=== PATIENT | female | born 1940 | race Caucasian/White ===

== ENCOUNTER 2024-11-10 15:27 | Inpatient (IN) | payer MEDICARE ==
[~2024-11-10] VITALS: Ht 167.6 cm; Wt 67.0 kg
[~2024-11-10 15:27] MED LIST: ASPI-1444 PO; CEPH-558 PO; CYAN100099 PO; MELA5TAB40 PO; METO25 PO; OMEG-135 PO; SERT-158 PO; SIMV10TA97 PO
[2024-11-10] MEDS: ACETAMINOPHEN 325 MG TABLET PO ONE (16:09)
[2024-11-10 16:15] LABS: EOSINOPHILS % (AUTO) 3.7 % (1.0-6.0); HEMATOCRIT 34.3 % (36-46); HEMOGLOBIN 11.2 g/dL (12.0-16.0); LYMPHOCYTES # (AUTO) 1.5 K/uL (1.0-4.8); LYMPHOCYTES % (AUTO) 10.2 % (22.0-44.0); MEAN CORPUSCULAR HGB CONC 32.5 G/dL (31.0-37.0); MEAN CORPUSCULAR VOLUME 92 fL (80-100); MONOCYTES # (AUTO) 0.7 K/uL (0.1-1.0); MONOCYTES % (AUTO) 4.4 % (2.0-9.0); NEUTROPHILS # (AUTO) 12.1 K/uL (1.8-7.7); NEUTROPHILS % (AUTO) 80.7 % (40.0-70.0); PLATELET COUNT (AUTO) 335 K/uL (150-450); RED BLOOD CELL COUNT(AUTO) 3.72 MIL/uL (4.00-5.20); RED CELL DISTRIBUTION WIDTH 14.2 % (11.5-14.5)
[2024-11-10 16:23] LABS: ANION GAP 10 mmol/L (8-16); CALCIUM, TOTAL 9.3 mg/dL (8.8-10.5); CARBON DIOXIDE 23 mmol/L (22-29); CHLORIDE 102 mmol/L (98-107); GLOMERULAR FILTR. RATE CALC 33 mL/min (>60); GLUCOSE,RANDOM 295 mg/dL (70-110); POTASSIUM 4.4 mmol/L (3.5-5.1); SODIUM SERUM 135 mmol/L (136-145); UREA NITROGEN, BLOOD 52 mg/dL (7-18)
[2024-11-10 16:25] LABS: ALANINE AMINOTRANSFERASE 23 U/L (12-78); ALBUMIN 2.9 g/dL (3.4-5.0); ALKALINE PHOSPHATASE 143 U/L (46-116); ASPARTATE AMINOTRANSFERASE 20 U/L (15-37); BILIRUBIN,TOTAL 0.3 mg/dL (0.1-1.0); TOTAL PROTEIN, SERUM 7.3 g/dL (6.4-8.2)
[2024-11-10 16:35] LABS: CREATINE KINASE, TOTAL ONLY 24 U/L (26-192)
[2024-11-10 16:38] LABS: TROPONIN I-HIGH SENSITIVITY 56 ng/L (<51)
[2024-11-10 16:53] LABS: B-TYPE NATRIURETIC PEPTIDE 20 pg/mL (0-100)
[2024-11-10 16:55] LABS: BILIRUBIN,DIRECT < 0.05 mg/dL (0.00-0.20)
[2024-11-10 18:06] LABS: APPEARANCE,URINE CLEAR (CLEAR); BILIRUBIN,URINE NEGATIVE (NEGATIVE); COLOR,URINE COLORLESS (YELLOW); GLUCOSE, URINE (UA) NEGATIVE (NEGATIVE); KETONES,URINE NEGATIVE (NEGATIVE); LEUKOCYTE ESTERASE ,URINE NEGATIVE (NEGATIVE); NITRATE,URINE NEGATIVE (NEGATIVE); OCCULT BLOOD,URINE NEGATIVE (NEGATIVE); PH,URINE 6.5 (5.0-8.0); PROTEIN,URINE NEGATIVE (NEGATIVE); SPECIFIC GRAVITIY, URINE 1.004 (1.003-1.030); UROBILINOGEN,URINE <=1.0 mg/dL (<=1.0)
[2024-11-10] MEDS ORDERED: ACETAMINOPHEN 325 MG TABLET PO PRN (20:45)
[2024-11-10] MEDS ORDERED: MORPHINE SULFATE 2 MG/ML SYRINGE IVP PRN (20:45)
[2024-11-10] MEDS ORDERED: MAGNESIUM HYDROXIDE SUSPENSION 30 ML UDCUP PO PRN (20:45)
[2024-11-10] MEDS ORDERED: ONDANSETRON HCL 4 MG/2 ML VIAL IVP PRN (20:45)
[2024-11-10] MEDS ORDERED: BISACODYL 10 MG RECTAL RECTAL SUPPOSITORY PR PRN (20:45)
[2024-11-10] MEDS: METOPROLOL TARTRATE 25 MG TABLET PO SCH (21:00)
[2024-11-10] MEDS: DOCUSATE SODIUM 100 MG CAPSULE PO SCH (21:00)
[2024-11-10] MEDS: SODIUM CHLORIDE 0.9% 1,000 ML IV ONE (21:33)
[2024-11-10 23:30] VITALS: BP 144/79; PULSE 83; RESP 19; TEMP 97.7; O2SAT 96
[2024-11-10 23:33] LABS: TROPONIN I-HIGH SENSITIVITY 109 ng/L (<51)
[2024-11-10] MEDS: HEPARIN SODIUM,PORCINE 5,000 UNITS/ML VIAL SQ SCH (23:35)
[2024-11-11] VITALS (7 sets, daily range): BP systolic 107–155; BP diastolic 56–74; PULSE 74–96; RESP 17–18; TEMP 97.5–98.7; O2SAT 94–96
[2024-11-11 07:57] LABS: BASOPHILS % (AUTO) 0.5 % (0.0-2.0); EOSINOPHILS % (AUTO) 4.7 % (1.0-6.0); HEMATOCRIT 34.3 % (36-46); HEMOGLOBIN 11.1 g/dL (12.0-16.0); LYMPHOCYTES # (AUTO) 1.5 K/uL (1.0-4.8); LYMPHOCYTES % (AUTO) 12.3 % (22.0-44.0); MEAN CORPUSCULAR HEMOGLOBIN 29.6 pg (26.0-34.0); MEAN CORPUSCULAR HGB CONC 32.5 G/dL (31.0-37.0); MEAN CORPUSCULAR VOLUME 91 fL (80-100); MONOCYTES # (AUTO) 0.6 K/uL (0.1-1.0); MONOCYTES % (AUTO) 4.9 % (2.0-9.0); NEUTROPHILS # (AUTO) 9.3 K/uL (1.8-7.7); NEUTROPHILS % (AUTO) 77.6 % (40.0-70.0); PLATELET COUNT (AUTO) 295 K/uL (150-450); RED BLOOD CELL COUNT(AUTO) 3.76 MIL/uL (4.00-5.20); RED CELL DISTRIBUTION WIDTH 14.2 % (11.5-14.5)
[2024-11-11 08:09] LABS: CALCIUM, TOTAL 9.2 mg/dL (8.8-10.5); CREATININE 1.2 mg/dL (0.60-1.30); POTASSIUM 4.3 mmol/L (3.5-5.1)
[2024-11-11 08:25] LABS: TROPONIN I-HIGH SENSITIVITY 99 ng/L (<51)
[2024-11-11] MEDS: ASPIRIN 81 MG DR TABLET PO SCH (08:54)
[2024-11-11] MEDS: PANTOPRAZOLE SODIUM 40 MG DR TABLET PO SCH (08:55)
[2024-11-11] MEDS: SIMVASTATIN 10 MG TABLET PO SCH (08:55)
[2024-11-11] MEDS: SERTRALINE HCL 50 MG TABLET PO SCH (08:55)
[2024-11-11 17:13] LABS: PH,URINE DRUG SCREEN 5.5 (5.0-8.0)
[2024-11-11 17:20] LABS: ALCOHOL, URINE DRUG SCREEN NEGATIVE (NEGATIVE); AMPHET/METH SCREEN,URINE NEGATIVE (NEGATIVE); BARBITURATE SCREEN, URINE NEGATIVE (NEGATIVE); BENZODIAZEPINES SCREEN,URINE NEGATIVE (NEGATIVE); CANNABINOID SCREEN,URINE NEGATIVE (NEGATIVE); COCAINE SCREEN,URINE NEGATIVE (NEGATIVE); METHADONE SCREEN, URINE NEGATIVE (NEGATIVE); OPIATE SCREEN,URINE NEGATIVE (NEGATIVE); PHENCYCLIDINE SCREEN,URINE NEGATIVE (NEGATIVE)
[2024-11-12 05:18] VITALS: BP 137/96; PULSE 83; RESP 18; TEMP 97.5; O2SAT 96
[2024-11-12 07:25] LABS: BASOPHILS % (AUTO) 0.6 % (0.0-2.0); EOSINOPHILS % (AUTO) 4.1 % (1.0-6.0); HEMATOCRIT 33.9 % (36-46); HEMOGLOBIN 10.9 g/dL (12.0-16.0); LYMPHOCYTES # (AUTO) 1.4 K/uL (1.0-4.8); LYMPHOCYTES % (AUTO) 12.4 % (22.0-44.0); MEAN CORPUSCULAR VOLUME 91 fL (80-100); MONOCYTES # (AUTO) 0.5 K/uL (0.1-1.0); MONOCYTES % (AUTO) 4.1 % (2.0-9.0); NEUTROPHILS # (AUTO) 8.7 K/uL (1.8-7.7); NEUTROPHILS % (AUTO) 78.8 % (40.0-70.0); PLATELET COUNT (AUTO) 307 K/uL (150-450); RED BLOOD CELL COUNT(AUTO) 3.75 MIL/uL (4.00-5.20); WHITE BLOOD COUNT (AUTO) 11.1 K/uL (4.5-11.0)
[2024-11-12 07:34] LABS: CALCIUM, TOTAL 9.6 mg/dL (8.8-10.5); CREATININE 1.28 mg/dL (0.60-1.30); POTASSIUM 4.5 mmol/L (3.5-5.1)
[2024-11-12 08:31] VITALS: BP 138/86; PULSE 84; RESP 19; TEMP 98.2; O2SAT 98
[2024-11-12 11:46] VITALS: BP 149/89; PULSE 75; RESP 18; TEMP 98; O2SAT 96
[2024-11-12 14:56] VITALS: BP_SYST 126; BP_SYST 140; BP_DIAS 78; BP_DIAS 83; PULSE 81; PULSE 89; RESP 18; TEMP 98.4; O2SAT 95; O2SAT 97
[2024-11-12 20:00] VITALS: BP 115/66; PULSE 82; RESP 17; TEMP 97.9; O2SAT 95
[2024-11-12] MEDS: HYDROCODONE/ACETAMINOPHEN 5-325 MG TABLET PO PRN (21:24)
[2024-11-12] MEDS: ZOLPIDEM TARTRATE 5 MG TABLET PO PRN (21:24)
[2024-11-13] VITALS: BP 128/71; PULSE 75; RESP 18; TEMP 97.7; O2SAT 98
[2024-11-13 04:00] VITALS: BP 133/73; PULSE 62; RESP 17; TEMP 97.9; O2SAT 97
[2024-11-13 07:43] LABS: CALCIUM, TOTAL 9.6 mg/dL (8.8-10.5); CREATININE 1.28 mg/dL (0.60-1.30); POTASSIUM 4.5 mmol/L (3.5-5.1)
[2024-11-13 07:46] LABS: BASOPHILS % (AUTO) 0.7 % (0.0-2.0); HEMATOCRIT 32.6 % (36-46); HEMOGLOBIN 10.6 g/dL (12.0-16.0); LYMPHOCYTES # (AUTO) 2.1 K/uL (1.0-4.8); LYMPHOCYTES % (AUTO) 26.2 % (22.0-44.0); MEAN CORPUSCULAR HEMOGLOBIN 29.6 pg (26.0-34.0); MEAN CORPUSCULAR HGB CONC 32.5 G/dL (31.0-37.0); MEAN CORPUSCULAR VOLUME 91 fL (80-100); MONOCYTES # (AUTO) 0.6 K/uL (0.1-1.0); MONOCYTES % (AUTO) 6.8 % (2.0-9.0); NEUTROPHILS # (AUTO) 4.9 K/uL (1.8-7.7); NEUTROPHILS % (AUTO) 60.3 % (40.0-70.0); PLATELET COUNT (AUTO) 309 K/uL (150-450); RED BLOOD CELL COUNT(AUTO) 3.58 MIL/uL (4.00-5.20); WHITE BLOOD COUNT (AUTO) 8.1 K/uL (4.5-11.0)
[2024-11-13 08:00] VITALS: BP 128/73; PULSE 62; RESP 18; TEMP 98.1; O2SAT 97
[2024-11-13 12:00] VITALS: BP 143/77; PULSE 62; RESP 17; TEMP 98.4; O2SAT 95
[2024-11-13] MEDS ORDERED: ACET160L48 PO (14:30)
[2024-11-13] MEDS ORDERED: ACET-66 PO (14:31)
[2024-11-13 18:05] VITALS: BP 131/66; PULSE 68; RESP 17; TEMP 97.5; O2SAT 96
[2024-11-13 21:00] VITALS: BP 141/77; PULSE 70; RESP 18; TEMP 97.5; O2SAT 98
[2024-11-14 04:48] VITALS: BP 140/63; PULSE 66; RESP 18; TEMP 98.1; O2SAT 96
== END 2024-11-14 15:40 | DRG 73 ==
LOC: EMS 15:27 → EDH 20:32 → 5S 23:00 → 4E 11-13 20:51
PROVIDERS: ADMIT Internal Medicine; ATTEND Internal Medicine
DX: G90.89 Other disorders of autonomic nervous system (principal); N17.0 Acute kidney failure with tubular necrosis; E44.0 Moderate protein-calorie malnutrition; N17.9 Acute kidney failure, unspecified; R55 Syncope and collapse; M25.512 Pain in left shoulder; D64.9 Anemia, unspecified; E11.9 Type 2 diabetes mellitus without complications; I10 Essential (primary) hypertension; F03.90 Unspecified dementia, unspecified severity, without behavioral disturbance, psychotic disturbance, mood disturbance, and anxiety; R79.89 Other specified abnormal findings of blood chemistry; E78.00 Pure hypercholesterolemia, unspecified; I34.0 Nonrheumatic mitral (valve) insufficiency; F32.A Depression, unspecified; F41.9 Anxiety disorder, unspecified; K21.9 Gastro-esophageal reflux disease without esophagitis; Z68.23 Body mass index [BMI] 23.0-23.9, adult
CPT/HCPCS: 70450; 71045; 72125; 80048; 80076; 80307; 81003; 82550; 83880; 84484; 85025; 87081; 93005; 93306; 96360; 99285; G0378; J1644; J7030; 36415-L1; 36415-TC

== ENCOUNTER 2024-12-31 12:18 | Emergency (ER) | payer MEDICARE ==
[~2024-12-31] VITALS: Ht 154.9 cm; Wt 70.0 kg
[~2024-12-31 12:18] MED LIST changes: +ACET160L48 PO; -CYAN100099 PO; +[UNRECOGNIZED DRUG - CODE] PO
[2024-12-31 12:20] VITALS: TEMP 98
[2024-12-31 13:45] VITALS: BP 159/84; PULSE 76; RESP 18; O2SAT 96
== END 2024-12-31 15:57 | disposition home or self-care (01) ==
LOC: EMS 12:19
DX: S00.83XA Contusion of other part of head, initial encounter (principal); E11.9 Type 2 diabetes mellitus without complications; E78.00 Pure hypercholesterolemia, unspecified; F03.94 Unspecified dementia, unspecified severity, with anxiety; F32.A Depression, unspecified; K21.9 Gastro-esophageal reflux disease without esophagitis; I10 Essential (primary) hypertension; Z79.82 Long term (current) use of aspirin; Z79.899 Other long term (current) drug therapy; Y08.89XA Assault by other specified means, initial encounter; Y93.89 Activity, other specified; Y92.89 Other specified places as the place of occurrence of the external cause; Y99.8 Other external cause status
CPT/HCPCS: 70450; 70486; 72125; 99284

== ENCOUNTER 2025-04-25 16:17 | Inpatient (IN) | payer MEDICARE ==
[~2025-04-25] VITALS: Ht 167.6 cm; Wt 69.3 kg
[~2025-04-25 16:17] MED LIST changes: +0.9% SODIUM CHLORIDE 10 ML SYRINGE IVP ONE; +0.9% SODIUM CHLORIDE 250 ML BAG IV ONE; +ATROPINE SULFATE 0.1 MG/ML 10 ML SYRINGE IVP ONE; +CALCIUM GLUCONATE 100 MG/ML 10 ML IVP ONE; +EPINEPHrine 1:10,000 [1 MG/10 ML] SYRINGE ONE; +NALOXONE HCL 1 MG/ML 2 ML SYRINGE ONE; +SODIUM BICARBONATE [ADULT] 8.4% 50 MEQ/50 ML SYRINGE IVP ONE
[2025-04-25] MEDS ORDERED: ACET-2247 PO (16:40)
[2025-04-25 16:55] LABS: PLATELET COUNT (AUTO) 304 K/uL (150-450); RED BLOOD CELL COUNT(AUTO) 3.44 MIL/uL (4.00-5.20); RED CELL DISTRIBUTION WIDTH 16.7 % (11.5-14.5); WHITE BLOOD COUNT (AUTO) 24.5 K/uL (4.5-11.0)
[2025-04-25 17:00] VITALS: PULSE 62; RESP 16; O2SAT 97
[2025-04-25] MEDS: CefTRIAXone 1 GM/DEXTROSE 50 ML IV ONE (17:00)
[2025-04-25 17:09] LABS: ASPARTATE AMINOTRANSFERASE 75 U/L (15-37); TOTAL PROTEIN, SERUM 6.3 g/dL (6.4-8.2)
[2025-04-25] MEDS ORDERED: 0.9% SODIUM CHLORIDE 10 ML SYRINGE IVP ONE (17:12)
[2025-04-25] MEDS ORDERED: IOHEXOL 350 MG/ML 100 ML VIAL ONE (17:12)
[2025-04-25] MEDS ORDERED: SODIUM CHLORIDE 0.9% 100 ML ONE (17:12)
[2025-04-25 17:14] LABS: BAND NEUTROPHILS % (MANUAL) 8 % (0-5); BASOPHILS % (MANUAL) 1 % (0-2); LYMPHOCYTES % (MANUAL) 15 % (22-44); MONOCYTES % (MANUAL) 4 % (2-9); SEGMENTED NEUTROPHILS % 72 % (40-70); WBC MORPHOLOGY TOXIC VACUOLATION
[2025-04-25 17:15] LABS: PLATELET MORPHOLOGY COMMENT LARGE PLTS PRESENT; RBC MORPHOLOGY COMMENT ABNORMAL RBC MORPH
[2025-04-25 17:16] LABS: TROPONIN I-HIGH SENSITIVITY 216 ng/L (<51)
[2025-04-25 17:28] LABS: LACTIC ACID 21.4 mmol/L (0.4-2.0)
[2025-04-25 17:30] LABS: FRACTIONATED INSPIRED OXYGEN 100.0 % (21-100.0); SOURCE, BLOOD GAS ARTERIAL; TEMPERATURE, FAHRENHEIT, BG 98.6 FAHREN (96.0-98.6)
[2025-04-25 17:30] LABS: CALCIUM, TOTAL 9.5 mg/dL (8.8-10.5); CREATININE 6.12 mg/dL (0.60-1.30); GLOMERULAR FILTR. RATE CALC 7 mL/min (>60); GLUCOSE,RANDOM 308 mg/dL (70-110); SODIUM SERUM 136 mmol/L (136-145); UREA NITROGEN, BLOOD 67 mg/dL (7-18)
[2025-04-25 17:34] LABS: ABG BASE EXCESS -34.5 mmol/L (-2.0-3.0); ABG CARBOXYHEMOGLOBIN 0.3 % (0.5-1.5); ABG HCO3 2.0 mmol/L (21.0-28.0); ABG METHEMOGLOBIN 1.1 % (0.0-1.5); ABG OXYGEN CONTENT 14.2 mL/dL (15.0-23.0); ABG OXYGEN SATURATION 97.8 % (94.0-98.0); ABG OXYHEMOGLOBIN 96.4 % (94.0-98.0); ABG PCO2 28 mmHg (32.0-45.0); ABG TOTAL HEMOGLOBIN 10.3 G/dL (12.0-16.0); PO2, ARTERIAL BG 133.2 mmHg (83.0-108.0)
[2025-04-25 17:40] LABS: ASPARTATE AMINOTRANSFERASE 79 U/L (15-37); CHOL/HDL RATIO 4.7 (3.9-5.7); LDL CHOL (CALC.) 130 mg/dL (0-130); TOTAL PROTEIN, SERUM 6.3 g/dL (6.4-8.2)
[2025-04-25] MEDS: DEXTROSE 50%-WATER 25 GM/50 ML SYRINGE IVP ONE ×2 (17:44→18:51)
[2025-04-25] MEDS: SODIUM CHLORIDE 0.9% 1,800 ML IV ONE (17:44)
[2025-04-25] MEDS: ALBUTEROL SULFATE 2.5 MG/0.5 ML NEB SOLUTION NEB ONE (17:51)
[2025-04-25 17:55] VITALS: PULSE 81; RESP 16; O2SAT 100
[2025-04-25 17:55] LABS: ABG PH 6.629 (7.350-7.450); ALLEN TEST, BLOOD GAS POS; O2 DEVICE,BLOOD GAS VENTILATOR (ROOM AIR); SITE, BLOOD GAS LFT BRACHIAL
[2025-04-25 17:56] LABS: PEEP,BG 5 cm H2O; VT, ABG 430 ml
[2025-04-25 17:57] LABS: SET RATE, BG 16.0 min.
[2025-04-25] MEDS: CALCIUM GLUCONATE 100 MG/ML 10 ML IVP ONE (18:22)
[2025-04-25] MEDS ORDERED: ACETAMINOPHEN 325 MG TABLET PO PRN (18:30)
[2025-04-25] MEDS ORDERED: BISACODYL 10 MG RECTAL RECTAL SUPPOSITORY PR PRN (18:30)
[2025-04-25] MEDS ORDERED: ONDANSETRON HCL 4 MG/2 ML VIAL IVP PRN (18:30)
[2025-04-25] MEDS ORDERED: PHENYLEPHRINE HCL IN 0.9% NACL 400 MCG/10 ML SYRINGE IVP ONE (18:42)
[2025-04-25] MEDS ORDERED: DEXTROSE 50%-WATER 25 GM/50 ML SYRINGE IVP PRN (18:45)
[2025-04-25] MEDS: NOREPINEPHRINE 8 MG/0.9 % NACL 250 ML IV PRN (18:48)
[2025-04-25] MEDS: INSULIN REGULAR, HUMAN 100 UNITS/ML IVP ONE (18:52)
[2025-04-25] MEDS: SODIUM ZIRCONIUM CYCLOSILICATE 10 GM POWDER PACKET NG ONE (18:55)
[2025-04-25 19:00] VITALS: PULSE 76; RESP 16; O2SAT 100
[2025-04-25] MEDS: SODIUM BICARBONATE [ADULT] 8.4% 50 MEQ/50 ML SYRINGE IVP ONE (19:14)
[2025-04-25 19:29] LABS: ABG BASE EXCESS -35.7 mmol/L (-2.0-3.0); ABG CARBOXYHEMOGLOBIN 0.3 % (0.5-1.5); ABG HCO3 1.3 mmol/L (21.0-28.0); ABG METHEMOGLOBIN 1.3 % (0.0-1.5); ABG OXYGEN CONTENT 14.4 mL/dL (15.0-23.0); ABG OXYGEN SATURATION 99.9 % (94.0-98.0); ABG OXYHEMOGLOBIN 98.3 % (94.0-98.0); ABG PCO2 23 mmHg (32.0-45.0); ABG TOTAL HEMOGLOBIN 9.7 G/dL (12.0-16.0); FRACTIONATED INSPIRED OXYGEN 100.0 % (21-100.0); SOURCE, BLOOD GAS ARTERIAL; TEMPERATURE, FAHRENHEIT, BG 88.9 FAHREN (96.0-98.6)
[2025-04-25 19:31] LABS: ABG PH 6.621 (7.350-7.450); ALLEN TEST, BLOOD GAS Positive; PO2, ARTERIAL BG 337.4 mmHg (83.0-108.0); SITE, BLOOD GAS LFT RADIAL
[2025-04-25 19:32] LABS: ABG A-A DIFF O2 365.3 mmHg (10-20.0); O2 DEVICE,BLOOD GAS VENTILATOR (ROOM AIR); PATIENT RATE, BG 16.0 min.; PEEP,BG 5 cm H2O; SET RATE, BG 16.0 min.; SPONTANEOUS VT, BG 854 ml; VT, ABG 430 ml
[2025-04-25 19:47] LABS: CALCIUM, TOTAL 8.8 mg/dL (8.8-10.5); CREATININE 5.2 mg/dL (0.60-1.30); GLOMERULAR FILTR. RATE CALC 8.0 mL/min (>60); GLUCOSE,RANDOM 230.0 mg/dL (70-110); SODIUM SERUM 145.0 mmol/L (136-145); UREA NITROGEN, BLOOD 62.0 mg/dL (7-18)
[2025-04-25 20:17] LABS: APPEARANCE,URINE CLEAR (CLEAR); GLUCOSE, URINE (UA) TRACE mg/dL (NEGATIVE); LEUKOCYTE ESTERASE ,URINE NEGATIVE (NEGATIVE); NITRATE,URINE NEGATIVE (NEGATIVE); OCCULT BLOOD,URINE TRACE (NEGATIVE); PH,URINE DRUG SCREEN 5.0 (5.0-8.0); SPECIFIC GRAVITIY, URINE 1.008 (1.003-1.030)
[2025-04-25 20:24] LABS: ALCOHOL, URINE DRUG SCREEN NEGATIVE (NEGATIVE); AMPHET/METH SCREEN,URINE NEGATIVE (NEGATIVE); BARBITURATE SCREEN, URINE NEGATIVE (NEGATIVE); CANNABINOID SCREEN,URINE NEGATIVE (NEGATIVE); COCAINE SCREEN,URINE NEGATIVE (NEGATIVE); METHADONE SCREEN, URINE NEGATIVE (NEGATIVE)
[2025-04-25 20:35] LABS: SQUAMOUS EPITHELIAL CELL,UR Few /LPF (None Seen)
[2025-04-25] MEDS: DOCUSATE SODIUM 100 MG CAPSULE PO SCH (21:00)
[2025-04-25 22:03] VITALS: PULSE 79; RESP 16; O2SAT 100
[2025-04-25] MEDS: RINGERS SOLUTION,LACTATED 1,000 ML IV ONE (22:03)
[2025-04-25] MEDS: CHLORHEXIDINE GLUCONATE 2% TOWELETTE [2'S/6'S] TP SCH (22:05)
[2025-04-25 22:23] LABS: ABG BASE EXCESS -34.8 mmol/L (-2.0-3.0); ABG CARBOXYHEMOGLOBIN 0.3 % (0.5-1.5); ABG HCO3 2.0 mmol/L (21.0-28.0); ABG METHEMOGLOBIN 1.0 % (0.0-1.5); ABG OXYGEN CONTENT 16.6 mL/dL (15.0-23.0); ABG OXYGEN SATURATION 99.7 % (94.0-98.0); ABG OXYHEMOGLOBIN 98.4 % (94.0-98.0); ABG PCO2 26 mmHg (32.0-45.0); ABG TOTAL HEMOGLOBIN 11.2 G/dL (12.0-16.0); FRACTIONATED INSPIRED OXYGEN 100.0 % (21-100.0); SOURCE, BLOOD GAS ARTERIAL; TEMPERATURE, FAHRENHEIT, BG 88.0 FAHREN (96.0-98.6)
[2025-04-25 22:26] LABS: ABG A-A DIFF O2 337.3 mmHg (10-20.0); ABG PH 6.645 (7.350-7.450); ALLEN TEST, BLOOD GAS Positive; O2 DEVICE,BLOOD GAS VENTILATOR (ROOM AIR); PO2, ARTERIAL BG 363.1 mmHg (83.0-108.0); SITE, BLOOD GAS RT RADIAL
[2025-04-25 22:27] LABS: PATIENT RATE, BG 16.0 min.; PEEP,BG 5 cm H2O; SET RATE, BG 16.0 min.; SPONTANEOUS VT, BG 449 ml; VT, ABG 430 ml
[2025-04-25 22:54] LABS: TROPONIN I-HIGH SENSITIVITY 583 ng/L (<51)
[2025-04-26] VITALS (7 sets, daily range): BP systolic 101–118; BP diastolic 34–44; PULSE 64–136; RESP 16; TEMP 87–90.7; O2SAT 97–100
[2025-04-26] MEDS ORDERED: PROPOFOL 1000 MG/ISO-OSM 100 ML IV PRN (00:15)
[2025-04-26] MEDS ORDERED: FentaNYL CIT 1000MCG/0.9% NACL 100 ML IV PRN (00:15)
[2025-04-26] MEDS: SODIUM BICARBONATE 150 MEQ in DEXTROSE 5%-WATER 1,000 ML IV SCH (00:24)
[2025-04-26] MEDS: HEPARIN SODIUM,PORCINE 5,000 UNITS/ML VIAL SQ SCH (00:35)
[2025-04-26] MEDS: INSULIN LISPRO 100 UNITS/ML SQ PRN (00:38)
[2025-04-26 00:41] LABS: PHOSPHORUS 10.4 mg/dL (2.5-4.9)
[2025-04-26 00:45] LABS: GLUCOMETER DEV NAME(LOC) ICUN.6; GLUCOSE,POINT OF CARE 150 MG/DL (70-110)
[2025-04-26 00:47] LABS: CALCIUM, TOTAL 8.8 mg/dL (8.8-10.5); CREATININE 5.32 mg/dL (0.60-1.30); GLOMERULAR FILTR. RATE CALC 8.0 mL/min (>60); GLUCOSE,RANDOM 161.0 mg/dL (70-110); SODIUM SERUM 144.0 mmol/L (136-145); UREA NITROGEN, BLOOD 63.0 mg/dL (7-18)
[2025-04-26 00:54] LABS: ACETONE,BLOOD 1:16 (NEGATIVE)
[2025-04-26 00:55] LABS: ALCOHOL, BLOOD (SERUM) < 3 mg/dL (0-10)
[2025-04-26] MEDS: PHENYLEPHRINE 200 MG/D5%-WATER 250 ML IV PRN (01:20)
[2025-04-26 02:05] LABS: ABG BASE EXCESS -34.0 mmol/L (-2.0-3.0); ABG CARBOXYHEMOGLOBIN 0.3 % (0.5-1.5); ABG HCO3 2.3 mmol/L (21.0-28.0); ABG METHEMOGLOBIN 0.0 % (0.0-1.5); ABG OXYGEN CONTENT 15.4 mL/dL (15.0-23.0); ABG OXYGEN SATURATION 99.3 % (94.0-98.0); ABG OXYHEMOGLOBIN 99.0 % (94.0-98.0); ABG PCO2 22 mmHg (32.0-45.0); ABG TOTAL HEMOGLOBIN 10.6 G/dL (12.0-16.0); FRACTIONATED INSPIRED OXYGEN 100.0 % (21-100.0); PO2, ARTERIAL BG 226.4 mmHg (83.0-108.0); TEMPERATURE, FAHRENHEIT, BG 86.3 FAHREN (96.0-98.6)
[2025-04-26 02:08] LABS: ABG PH 6.704 (7.350-7.450)
[2025-04-26 02:09] LABS: SITE, BLOOD GAS RT FEMORAL; SOURCE, BLOOD GAS ARTERIAL LINE
[2025-04-26 02:10] LABS: ABG A-A DIFF O2 479.2 mmHg (10-20.0); O2 DEVICE,BLOOD GAS VENTILATOR (ROOM AIR); VT, ABG 430 ml
[2025-04-26 02:11] LABS: PATIENT RATE, BG 16.0 min.; PEEP,BG 5 cm H2O; SET RATE, BG 16.0 min.
[2025-04-26 02:12] LABS: SPONTANEOUS VT, BG 452 ml
[2025-04-26 06:20] LABS: PLATELET COUNT (AUTO) 300 K/uL (150-450); RED BLOOD CELL COUNT(AUTO) 3.69 MIL/uL (4.00-5.20); RED CELL DISTRIBUTION WIDTH 16.5 % (11.5-14.5)
[2025-04-26 06:34] LABS: TROPONIN I-HIGH SENSITIVITY 1287 ng/L (<51)
[2025-04-26 06:36] LABS: GLUCOMETER DEV NAME(LOC) ICUN.6; GLUCOSE,POINT OF CARE 233 MG/DL (70-110)
[2025-04-26 06:42] LABS: WHITE BLOOD COUNT (AUTO) 39.8 K/uL (4.5-11.0)
[2025-04-26] MEDS: NOREPINEPHRINE 8 MG/0.9 % NACL 250 ML IV PRN (07:16)
[2025-04-26 07:33] LABS: ASPARTATE AMINOTRANSFERASE 379.0 U/L (15-37); CALCIUM, TOTAL 8.2 mg/dL (8.8-10.5); CREATININE 5.53 mg/dL (0.60-1.30); GLOMERULAR FILTR. RATE CALC 7.0 mL/min (>60); GLUCOSE,RANDOM 254.0 mg/dL (70-110); SODIUM SERUM 141.0 mmol/L (136-145); TOTAL PROTEIN, SERUM 5.3 g/dL (6.4-8.2); UREA NITROGEN, BLOOD 60.0 mg/dL (7-18)
[2025-04-26 07:53] LABS: PHOSPHORUS 10.4 mg/dL (2.5-4.9)
[2025-04-26 07:56] LABS: BAND NEUTROPHILS % (MANUAL) 8 % (0-5); EOSINOPHILS % (MANUAL) 1 % (1-6); LYMPHOCYTES % (MANUAL) 14 % (22-44); MONOCYTES % (MANUAL) 3 % (2-9); PLATELET MORPHOLOGY COMMENT LARGE PLTS PRESENT; SEGMENTED NEUTROPHILS % 74 % (40-70); WBC MORPHOLOGY TOXIC GRANULATION
[2025-04-26 07:57] LABS: RBC MORPHOLOGY COMMENT ABNORMAL R
[2025-04-26] MEDS ORDERED: MORPHINE SULFATE 2 MG/ML SYRINGE IVP PRN (08:15)
[2025-04-26] MEDS ORDERED: PANTOPRAZOLE SODIUM 40 MG/VIAL IVP SCH (09:00)
[2025-04-26] MEDS: MORPHINE SULFATE 4 MG/ML VIAL IVP PRN (09:15)
[2025-04-26] MEDS: SODIUM ZIRCONIUM CYCLOSILICATE 10 GM POWDER PACKET PO ONE (09:16)
[2025-04-26] MEDS ORDERED: CefTRIAXone 1 GM/DEXTROSE 50 ML IV SCH (21:00)
== END 2025-04-26 11:47 | DRG 871 ==
LOC: EMS 16:18 → EDH 18:29 → ICU 21:07
PROVIDERS: ADMIT Internal Medicine; ATTEND Internal Medicine
PROC: 5A1935Z Respiratory Ventilation, Less than 24 Consecutive Hours (ICD-10-PCS; principal; 2025-04-25)
PROC: 0BH17EZ Insertion of Endotracheal Airway into Trachea, Via Natural or Artificial Opening (ICD-10-PCS; 2025-04-25)
DX: A41.9 Sepsis, unspecified organism (principal); G93.41 Metabolic encephalopathy; J96.00 Acute respiratory failure, unspecified whether with hypoxia or hypercapnia; J18.9 Pneumonia, unspecified organism; R65.21 Severe sepsis with septic shock; I21.4 Non-ST elevation (NSTEMI) myocardial infarction; E87.20 Acidosis, unspecified; Z99.11 Dependence on respirator [ventilator] status; I46.9 Cardiac arrest, cause unspecified; N17.9 Acute kidney failure, unspecified; E87.5 Hyperkalemia; E10.65 Type 1 diabetes mellitus with hyperglycemia; E10.22 Type 1 diabetes mellitus with diabetic chronic kidney disease; I12.9 Hypertensive chronic kidney disease with stage 1 through stage 4 chronic kidney disease, or unspecified chronic kidney disease; E78.00 Pure hypercholesterolemia, unspecified; F32.A Depression, unspecified; F41.9 Anxiety disorder, unspecified; K21.9 Gastro-esophageal reflux disease without esophagitis; Z66 Do not resuscitate; F03.90 Unspecified dementia, unspecified severity, without behavioral disturbance, psychotic disturbance, mood disturbance, and anxiety; I25.10 Atherosclerotic heart disease of native coronary artery without angina pectoris; D64.9 Anemia, unspecified; N18.32 Chronic kidney disease, stage 3b; Z51.5 Encounter for palliative care; Z79.4 Long term (current) use of insulin
CPT/HCPCS: 51702; 70496; 70498; 71045; 80048; 80053; 80061; 80307; 81001; 82009; 82010; 82248; 82805; 82948; 82962; 83036; 83605; 83735; 84100; 84145; 84484; 85025; 85610; 85730; 86850; 86900; 86901; 87040; 87081; 93005; 94002; 94003; 94640; 96361; 96365; 96375; 96376; 99291; G0480; J0169; J0461; J0610; J0696; J1644; J1815; J2270; J2312; J2370; J3490; J7050; J7060; J7120; 36415-L1; 36415-TC; 70450; 70450-TC